=== PATIENT | female | born 1965 | race American Indian/Alaskan Native ===

== ENCOUNTER 2018-02-24 13:03 | Outpatient (CLI) | payer MEDICARE ==
--- NOTE | 2018-02-24 16:33 | Mammography Report ---
BILATERAL DIGITAL SCREENING MAMMOGRAM with CAD: 02/24/18 13:03:00 CLINICAL: Routine screening. COMPARISON:09/20/14 FINDINGS: The breasts are almost entirely fatty.Bilateral benign calcifications and calcified masses. No other mass, architectural distortion or suspicious calcifications. IMPRESSION: No mammographic evidence of malignancy. BI-RADS CATEGORY: 2 -- Benign RECOMMENDATION: Routine mammographic screening in one year. COMMENT: Patient follow-up letters are generated by our [employer] application.
== END 2018-02-24 13:04 | disposition home or self-care (01) ==
LOC: MAMMO 13:03
DX: Z12.31 Encounter for screening mammogram for malignant neoplasm of breast (principal)
CPT/HCPCS: 77067